=== PATIENT | female | born 1985 | race Caucasian/White ===

== ENCOUNTER → 2022-05-06 | Outpatient (CLI) | payer MEDICAID, SELFPAY ==
--- NOTE | 2022-05-06 15:40 | US_ITS ---
STUDY: ULTRASOUND - US Unlisted US Procedure 05/06/2022 7:56 PM REASON FOR EXAM: Female, 37 years old. fatty growth on back, likely lipoma -- -- MIDLINE LOWER BACKfatty growth on back, likely lipoma -- -- MIDLINE LOWER BACK TECHNIQUE: A superficial ultrasound was performed with real-time and static yeboah-scale imaging. COMPARISON: None. FINDINGS: There is no fluid collection. There is no abscess. There is no visualized mass. US/Other Unlisted US Procedure IMPRESSION: There are no acute findings Electronically Signed: Valdemar Givens MD at 19:57 EDT ,
== END | disposition home or self-care (01) ==
LOC: US 15:35
PROVIDERS: PCP Internal Medicine; Referring Provider Internal Medicine; Visit Provider Internal Medicine
DX: D17.1 Benign lipomatous neoplasm of skin and subcutaneous tissue of trunk (principal)
CPT/HCPCS: 76882; 76999